=== PATIENT | male | born 1985 | race Caucasian/White ===

== ENCOUNTER 2021-01-27 09:10 | Emergency (ER) | payer OTHER ==
[2021-01-27 09:54] LABS: BASOPHIL 0.1 % (0-2); EOSINOPHIL 1.1 % (0-5); HCT 40.1 % (42.0-52.0); HGB 13.2 g/dl (13.2-18.0); LYMPHOCYTE 22.7 % (15-48); MCH 27.5 pg (25.0-31.0); MCHC 32.9 g/dL (32.0-36.0); MCV 83.5 fL (78.0-100.0); MONOCYTE 5.7 % (0-12); MPV 9.2 fL (6.0-9.5); NEUTROPHIL 69.9 % (41-80); NRBC 0; PLT 285 K/uL (150-400); RDW 14.6 % (11.5-14.0); WBC 13.9 K/uL (4.0-10.5)
[2021-01-27 10:25] LABS: ALBUMIN 3.9 g/dL (3.4-5.0); BILIRUBIN - TOTAL 0.2 mg/dL (0.2-1.0); BUN/CREAT RATIO (CALC) 12.2 RATIO; CREATININE 0.82 mg/dL (0.67-1.17); GLOBULIN (CALCULATION) 3.8 g/dL; POTASSIUM 4.4 mmol/L (3.5-5.1); TOTAL PROTEIN 7.7 g/dL (6.4-8.2)
[2021-01-27 11:04] LABS: BILIRUBIN NEGATIVE (NEGATIVE); BLOOD NEGATIVE Ery/uL (NEGATIVE); CLARITY CLEAR (CLEAR); COLOR YELLOW (YELLOW); GLUCOSE (U) NORMAL (NORMAL); LEUKOCYTES NEGATIVE Leu/uL (NEGATIVE); NITRITE NEGATIVE (NEGATIVE); PROTEIN NEGATIVE (NEGATIVE); SPECIFIC GRAVITY <=1.005 (1.001-1.030); UROBILINOGEN 0.2 mg/dL (0.2-1.0)
[2021-01-27] MEDS ORDERED: NAPROXEN500 MG PO (11:25)
== END 2021-01-27 11:41 | disposition home or self-care (01) ==
LOC: FER 09:10
PROVIDERS: Internal Medicine
DX: M25.552 Pain in left hip (principal); R03.0 Elevated blood-pressure reading, without diagnosis of hypertension; U07.1 COVID-19; J45.909 Unspecified asthma, uncomplicated; F17.210 Nicotine dependence, cigarettes, uncomplicated
CPT/HCPCS: 36415; 80053; 81003; 83690; 85025; J2405; J2930; U0002